=== PATIENT | male | born 1970 | race African-American/Black ===

== ENCOUNTER 2017-10-25 04:30 | Emergency (ER) | payer OTHER ==
[~2017-10-25] VITALS: Ht 185.4 cm; Wt 115.5 kg
[2017-10-25 04:53] LABS: HEMATOCRIT 46.6 % (38.0-50.0); HEMOGLOBIN 16.1 G/DL (12.5-16.6); MCH 30.4 PG (29.0-34.0); MCHC 34.5 G/DL (30.0-36.0); MCV 88.1 FL (86-99); PLATELET COUNT 186 K/uL (156-360); RBC DIS.WIDTH-CV 13.2 % (11.8-14.6); RBC DIS.WIDTH-SD 42.6 % (39-53); RED BLOOD COUNT 5.29 M/uL (4.00-5.50); WHITE BLOOD COUNT 8.7 K/uL (4.1-10.2)
[2017-10-25 05:13] LABS: ALBUMIN 4.5 g/dL (3.2-4.8); CHLORIDE 103 mEq/L (99-109); POTASSIUM 3.9 mEq/L (3.7-5.4); SODIUM 139 mEq/L (136-147)
[2017-10-25 05:15] LABS: GLUCOSE 76 mg/dL (70-99)
[2017-10-25 05:16] LABS: TOTAL PROTEIN 8.1 g/dL (6.4-8.3)
[2017-10-25 05:17] LABS: TOTAL BILIRUBIN 0.6 mg/dL (0.0-1.0)
[2017-10-25 05:19] LABS: ALKALINE PHOSPHATASE 118 IU/L (3-129); CREATININE 1.1 mg/dL (0.6-1.3); GFR ESTIMATE (CALCULATED) > 59 mL/min/ (58.99-99999)
[2017-10-25 05:20] LABS: UREA NITROGEN (BUN) 13 mg/dL (9-23)
[2017-10-25 05:21] LABS: AST (GOT) 31 IU/L (2-34)
[2017-10-25 05:22] LABS: ALT (GPT) 24 IU/L (3-49); LIPASE 30 U/L (1.0-51.0)
[2017-10-25] MEDS ORDERED: MICROZIDE12.5 M1 PO (09:29)
[2017-10-25] MEDS ORDERED: ZYRTEC10 M3 PO (09:30)
[2017-10-25] MEDS ORDERED: COLACE100 MG PO (09:31)
[2017-10-25] MEDS ORDERED: OMEPRAZOLE40 M1 PO (09:34)
[2017-10-25] MEDS ORDERED: LO-DOSE ASPIRIN81 M2 PO (09:35)
[2017-10-25] MEDS ORDERED: COZAAR50 MG PO (09:36)
[2017-10-25] MEDS ORDERED: NAPROSYN375 MG PO (09:37)
[2017-10-25] MEDS ORDERED: FIBER THERAPY660 G1 PO (09:39)
[2017-10-25 13:17] VITALS: BP 139/91
== END 2017-10-25 13:21 | disposition short-term general hospital (02) ==
LOC: EME → EDBD 04:30 → EME 04:30
PROVIDERS: Emergency Medicine
DX: K56.600 Partial intestinal obstruction, unspecified as to cause (principal); K43.6 Other and unspecified ventral hernia with obstruction, without gangrene; K57.30 Diverticulosis of large intestine without perforation or abscess without bleeding; K76.0 Fatty (change of) liver, not elsewhere classified; E66.9 Obesity, unspecified; Z68.30 Body mass index [BMI] 30.0-30.9, adult; Z90.49 Acquired absence of other specified parts of digestive tract; Z93.3 Colostomy status; Z87.891 Personal history of nicotine dependence
CPT/HCPCS: 71045; 74177; 80053; 83605; 83690; 85027; 99281; 99285; J2270; J2405; J7030; J7120